=== PATIENT | female | born 1960 | race Caucasian/White ===

== ENCOUNTER → 2018-03-03 | Outpatient (CLI) | payer BC ==
[2018-03-03 15:47] VITALS: BP 140/80; PULSE 77; RESP 16; TEMP 99; BMI 35.6
--- NOTE | 2018-03-03 16:13 | P.HPBAR ---
Bariatric H&P - History & Physicial H&P Date: 03/03/18 History & Physicial: Visit/CC: WANTS BAND OUT Patient initial contact: Initial weight: 85.786 kg Initial weight in pounds: 189.13 Height: 5 ft 1 in Initial BMI: 35.7 Last weight: Current weight: 85.729 kg Current weight in pounds: 189.00 Current BMI: 35.6 [place] body weight (based on NIH guidelines): 47.627 kg Excess body weight loss: 0.1% The patient is a 58 year-old F who presents for Bariatric Assessment. Patient presents today for LAP-BAND follow-up. She's not been seen over 3 years. She has complaints of dysphagia. She states she cannot eat solid foods. She does however like chocolate. Past Medical History Past Medical History: Diabetes Mellitus, Osteoarthritis (OA) History of Any Multi-Drug Resistant Organisms: None Reported Past Surgical History: Back Surgery, Bariatric Surgery, Hysterectomy, Orthopedic Surgery Additional Past Surgical History / Comment(s): bilateral carpal tunnel surgery lap band surgery 2011 bilateral knee replacement cervical fusion lumbar fusion Past Anesthesia/Blood Transfusion Reactions: No Reported Reaction Smoking Status: Never smoker Surgical - Exam Vital Signs Temp Pulse Resp BP 99 F 77 16 140/80 03/03/18 15:43 03/03/18 15:43 03/03/18 15:43 03/03/18 15:43 - General well developed, no distress - Eyes PERRL - Abdomen Abdomen: soft, non tender Bariatric Assessment & Plan Plan: Severe dysphagia. Patient LAP-BAND was emptied. 1.6 mL remove her band. Patient follow-up in 2 weeks. The patient was requesting information about conversion sleeve gastrectomy. She'll will be reevaluated in 2 weeks. Bariatric Checklist Checklist: Plan: Checklist: EGD: 1. Hiatal hernia: 2. H. Pylori: HgbA1c: Vitamin D: Smoking: Never smoker Primary care physician referral: Psychiatry clearance: Cardiology clearance: Sleep study: Diet journal: VTE risk score: VTE risk level: Rehab needs at discharge:
== END | disposition home or self-care (01) ==
LOC: BARWHC3 15:29
PROVIDERS: ATTEND Surgery
DX: Z48.815 Encounter for surgical aftercare following surgery on the digestive system (principal); R13.10 Dysphagia, unspecified; Z98.84 Bariatric surgery status; Z90.710 Acquired absence of both cervix and uterus
CPT/HCPCS: 99211

== ENCOUNTER → 2019-03-10 | Outpatient (CLI) | payer BC ==
--- NOTE | 2019-03-10 11:35 | XR ---
Lumbar spine HISTORY: Low back pain 3 views of the lumbar spine correlated to prior lumbosacral spine 03/22/2010 Postop changes are noted at the lumbosacral junction as on previous, there are laminectomies, unilate ral posterior fusion with intervertebral spacing block at L5-S1. Multilevel spondylosis is present. L umbar vertebral bodies show preserved height and alignment. Bone mineralization is reduced. There is multilevel spondylosis. Loss of disc height present L4-5. Sclerosis present in the posterior elements compatible with facet arthropathy. Some progression of loss of disc height suspected L5-S1, minimal anterolisthesis grade 1 L5-S1 is stable. Patient is post lap band. Mild spinal curvature noted. IMPRESSION: Postop changes, degenerative disc disease, osteopenia. Some progression of loss of height at L5-S1, L4-5 is suspected.
== END | disposition home or self-care (01) ==
LOC: RADXRMAIN 09:27
PROVIDERS: ATTEND Family Medicine
DX: M51.37 Other intervertebral disc degeneration, lumbosacral region (principal); M85.88 Other specified disorders of bone density and structure, other site; Z98.890 Other specified postprocedural states
CPT/HCPCS: 72100

== ENCOUNTER → 2022-04-16 | Outpatient (CLI) | payer MEDICARE ==
[2022-04-16 13:45] VITALS: BP 171/94; PULSE 108; TEMP 98.6; BMI 34.2
--- NOTE | 2022-04-16 15:33 | P.HPBAR ---
Bariatric H&P - History & Physicial H&P Date: 04/16/22 History & Physicial: Visit/CC: lap band Patient initial contact: Initial weight: 85.786 kg Initial weight in pounds: 189.13 Height: 5 ft 1 in Initial BMI: 35.7 Last weight: Current weight: 82.1 kg Current weight in pounds: 181.00 Current BMI: 34.2 [place] body weight (based on NIH guidelines): 47.627 kg Excess body weight loss: 9.6% The patient is a 62 year-old F who presents for Bariatric Assessment. Patient presents today for bariatric follow-up. She is question of the LAP-BAND removed. She's had some trouble with intermittent dysphagia. Past Medical History Past Medical History: Diabetes Mellitus, Osteoarthritis (OA) History of Any Multi-Drug Resistant Organisms: None Reported Past Surgical History: Back Surgery, Bariatric Surgery, Hysterectomy, Orthopedic Surgery Additional Past Surgical History / Comment(s): bilateral carpal tunnel surgery lap band surgery 2011 bilateral knee replacement cervical fusion lumbar fusion Past Anesthesia/Blood Transfusion Reactions: No Reported Reaction Past Psychological History: No Psychological Hx Reported Smoking Status: Never smoker Past Alcohol Use History: None Reported Past Drug Use History: None Reported Surgical - Exam Vital Signs Temp Pulse BP 98.6 F 108 H 171/94 04/16/22 13:39 04/16/22 13:39 04/16/22 13:39 - General well developed, well nourished, no distress - Eyes PERRL - ENT normal pinna - Neck no masses - Respiratory normal expansion - Cardiovascular Rhythm: regular - Abdomen Abdomen: soft, non tender Bariatric Assessment & Plan Plan: Patient will have her LAP-BAND removed as an outpatient. Bariatric Checklist Checklist: Plan: Checklist: EGD: 1. Hiatal hernia: 2. H. Pylori: HgbA1c: Vitamin D: Smoking: Never smoker Primary care physician referral: Dr. Soto Psychiatry clearance: Cardiology clearance: Sleep study: Diet journal: VTE risk score: VTE risk level: Rehab needs at discharge:
== END ==
LOC: BARWHC3 13:07
PROVIDERS: ATTEND Surgery
DX: Z09 Encounter for follow-up examination after completed treatment for conditions other than malignant neoplasm (principal); Z98.84 Bariatric surgery status; M19.90 Unspecified osteoarthritis, unspecified site; E11.9 Type 2 diabetes mellitus without complications
CPT/HCPCS: 99211

== ENCOUNTER 2022-05-21 06:52 | Day surgery (SDC) | payer MEDICARE ==
[~2022-05-21 06:52] MED LIST: DEXAMETHASONE SOD PHOSPHATE 4 MG/ML 1 ML VIAL IV ONE; HYDROmorphone 0.5 MG/0.5 ML SYRINGE IVP PRN; LACTATED RINGERS 1,000 ML IV SCH; ONDANSETRON 4 MG/2 ML VIAL IVP ONE
[2022-05-21] MEDS ORDERED: HEPARIN SODIUM,PORCINE/PF 5,000 UNIT/0.5 ML SYRINGE SQ ONE (07:53)
[2022-05-21 07:58] LABS: Glucose,Whole Blood 142 mg/dL (70-110)
--- NOTE | 2022-05-21 08:41 | P.GSHP ---
History of Present Illness H&P Date: 05/21/22 Chief Complaint: Dysphagia This a 62-year-old female who's had complaints of dysphagia. Patient presents today for removal of LAP-BAND system. Past Medical History Past Medical History: Diabetes Mellitus, Hyperlipidemia, Hypertension, Musculoskeletal Disorder, Osteoarthritis (OA) Additional Past Medical History / Comment(s): chronic back pain History of Any Multi-Drug Resistant Organisms: None Reported Past Surgical History: Back Surgery, Bariatric Surgery, Hysterectomy, Joint Replacement, Orthopedic Surgery Additional Past Surgical History / Comment(s): bilateral carpal tunnel surgery, lap band surgery 2010, bilateral knee replacement, cervical fusion, lumbar fusion Past Anesthesia/Blood Transfusion Reactions: No Reported Reaction Past Psychological History: No Psychological Hx Reported Smoking Status: Never smoker Past Alcohol Use History: None Reported Past Drug Use History: None Reported - Past Family History Mother Family Medical History: No Reported History Medications and Allergies Home Medications Medication Instructions Recorded Confirmed Type Insulin Degludec [Tresiba 28 unit SQ PC-SUPPER 02/27/18 05/17/22 History Flextouch U-100] traMADol HCL 50 mg PO QID 04/16/22 05/17/22 History Lisinopril-Hctz 20-25 mg 1 tab PO DAILY 05/17/22 05/17/22 History [Zestoretic 20-25] Simvastatin [Zocor] 20 mg PO HS 05/17/22 05/17/22 History Allergies Allergy/AdvReac Type Severity Reaction Status Date / Time No Known Allergies Allergy Verified 05/17/22 17:24 Surgical - Exam Vital Signs Temp Pulse Resp BP Pulse Ox 97.8 F 110 H 20 191/91 97 05/21/22 07:41 05/21/22 07:41 05/21/22 07:41 05/21/22 07:41 05/21/22 07:41 - General well developed, well nourished, no distress - Eyes PERRL - ENT normal pinna - Neck no masses - Respiratory normal expansion - Cardiovascular Rhythm: regular - Abdomen Abdomen: soft, non tender Results - Labs Abnormal Lab Results - Last 24 Hours (Table) 05/21/22 Range/Units 07:47 POC Glucose (mg/dL) 142 H (70-110) mg/dL Assessment and Plan Assessment: History of dysphagia. We'll perform removal of LAP-BAND system.
[2022-05-21] MEDS ORDERED: GLYCOPYRROLATE 0.2 MG/ML 2 ML VIAL ONE (08:56)
[2022-05-21] MEDS ORDERED: MIDAZOLAM 2 MG/2 ML VIAL ONE (08:56)
[2022-05-21] MEDS ORDERED: PROPOFOL 10 MG/ML 20 ML VIAL IV ONE (08:56)
[2022-05-21] MEDS ORDERED: SUCCINYLCHOLINE CHLORIDE 200 MG/10 ML VIAL IV ONE (08:56)
[2022-05-21] MEDS ORDERED: LIDOCAINE 2% INJ 20 MG/ML (2 ML VIAL) ONE (08:56)
[2022-05-21] MEDS ORDERED: ePHEDrine 50 MG/ML 1 ML VIAL ONE (08:56)
[2022-05-21] MEDS ORDERED: NEOSTIGMINE 1 MG/ML 10 ML VIAL ONE (08:56)
[2022-05-21] MEDS ORDERED: fentaNYL (PF) 50 MCG/ML 2 ML AMP ONE (08:56)
[2022-05-21] MEDS ORDERED: ROCURONIUM 10 MG/ML (5 ML VIAL) IV ONE (08:56)
[2022-05-21] MEDS ORDERED: LABETALOL 5 MG/ML VIAL MDV ONE (08:56)
[2022-05-21] MEDS ORDERED: BUPIVACAIN-EPI 0.25%-1:200,000 30 ML VIAL SQ ONE (09:46)
--- NOTE | 2022-05-21 10:05 | P.OP ---
Date of Procedure: 05/21/22 Preoperative Diagnosis: Dysphagia Postoperative Diagnosis: Dysphagia Procedure(s) Performed: Removal of LAP-BAND system Anesthesia: ARLETH Surgeon: Herson Roland Estimated Blood Loss (ml): 5 Pathology: none sent Condition: stable Disposition: PACU Description of Procedure: The patient's placed on the operating table in the supine position. She received general endotracheal anesthesia. Her abdomen was then prepped and draped usual sterile fashion after she was placed in dorsal 5 position. The patient's placed in reverse Trendelenburg. The skin incision sites were located and 1% local Xylocaine was instilled. The skin was incised and the port site using blunt and sharp dissection with cautery the LAP-BAND port was dissected free the PEG tube was cut and sent to pathology. Using a 5 mm optical trocar under direct visualization the. Cavity is entered. Upon entering the peritoneal cavity the abdomen insufflated. After adequate insufflation a 5 mm trochars placed in the right epigastric position right lateral position left lateral position. The original 5 mm trocar was exchanged for a 15 mm trocar and an 8 mm trochars placed in the supraumbilical position. The LAP-BAND device was visualized. The adhesions Srini device were lysed using left cautery. The LAP-BAND device was then cut next to the buckle. And the buckle was undone and then the buckle pain was brought out through the 1500 trocar site. The LAP-BAND was then withdrawn from around stomach. And brought out through the 15 mm trocar site. There is no bleeding seen. The apices fluid. The trochars were withdrawn. Skin was closed interrupted 3-0 Monocryl suture. Dermabond dressings was applied. Patient top she will sent to recovery in stable condition.
[2022-05-21 10:06] VITALS: RESP 16; TEMP 97.2
[2022-05-21 10:12] LABS: Glucose,Whole Blood 250 mg/dL (70-110)
[2022-05-21] MEDS ORDERED: INSULIN ASPART (NovoLOG) 100 UNIT/ML VIAL SQ ONE (10:12)
[2022-05-21 11:24] VITALS: BP 124/81
[2022-05-21 11:37] VITALS: PULSE 90
[2022-05-21 11:39] LABS: Glucose,Whole Blood 226 mg/dL (70-110)
== END 2022-05-21 11:51 | disposition home or self-care (01) ==
LOC: OR 06:52
PROVIDERS: ATTEND Surgery
DX: Z45.89 Encounter for adjustment and management of other implanted devices (principal); R13.10 Dysphagia, unspecified; E66.01 Morbid (severe) obesity due to excess calories; E11.9 Type 2 diabetes mellitus without complications; E78.5 Hyperlipidemia, unspecified; I10 Essential (primary) hypertension; M19.90 Unspecified osteoarthritis, unspecified site; M79.9 Soft tissue disorder, unspecified; M54.9 Dorsalgia, unspecified; G89.29 Other chronic pain; Z79.84 Long term (current) use of oral hypoglycemic drugs; Z79.899 Other long term (current) drug therapy; Z79.890 Hormone replacement therapy
CPT/HCPCS: 43772; J2250; J0330; J1100; J2710; J0690; J2405; J3010; J2704; J1644; J2001

== ENCOUNTER → 2022-06-11 | Outpatient (CLI) | payer MEDICARE ==
[2022-06-11 13:29] VITALS: BP 178/85; PULSE 106; BMI 34.9
--- NOTE | 2022-06-11 15:04 | P.HPBAR ---
Bariatric H&P - History & Physicial H&P Date: 06/11/22 History & Physicial: Visit/CC: lap band removal f/u Patient initial contact: Initial weight: 85.786 kg Initial weight in pounds: 189.13 Height: 5 ft 1 in Initial BMI: 35.7 Last weight: Current weight: 83.915 kg Current weight in pounds: 185.00 Current BMI: 34.9 [place] body weight (based on NIH guidelines): 47.627 kg Excess body weight loss: 4.9% The patient is a 62 year-old F who presents for Bariatric Assessment. Patient presents today for follow-up. She had previous lap band removal. The patient has GERD. She feels she still has some dysphagia. Past Medical History Past Medical History: Diabetes Mellitus, Hyperlipidemia, Hypertension, Musculoskeletal Disorder, Osteoarthritis (OA) Additional Past Medical History / Comment(s): chronic back pain History of Any Multi-Drug Resistant Organisms: None Reported Past Surgical History: Back Surgery, Bariatric Surgery, Hysterectomy, Joint Replacement, Orthopedic Surgery Additional Past Surgical History / Comment(s): bilateral carpal tunnel surgery, lap band surgery 2010, bilateral knee replacement, cervical fusion, lumbar fusio n. lap band removal 05-21-22 Past Anesthesia/Blood Transfusion Reactions: No Reported Reaction Past Psychological History: No Psychological Hx Reported Smoking Status: Never smoker Past Alcohol Use History: None Reported Past Drug Use History: None Reported - Past Family History Mother Family Medical History: No Reported History Surgical - Exam Vital Signs Pulse BP 106 H 178/85 06/11/22 13:26 06/11/22 13:26 - General well developed, well nourished, no distress - Eyes PERRL - ENT normal pinna, normal nares - Neck no masses - Respiratory normal expansion - Cardiovascular Rhythm: regular - Abdomen Abdomen: soft, non tender Bariatric Assessment & Plan Plan: Patient's GERD will be observed. She'll follow-up in 8 weeks. Bariatric Checklist Checklist: Plan: Checklist: EGD: 1. Hiatal hernia: 2. H. Pylori: HgbA1c: Vitamin D: Smoking: Never smoker Primary care physician referral: Dr. Soto Psychiatry clearance: Cardiology clearance: Sleep study: Diet journal: VTE risk score: VTE risk level: Rehab needs at discharge:
== END ==
LOC: BARWHC3 12:48
PROVIDERS: ATTEND Surgery
DX: E66.01 Morbid (severe) obesity due to excess calories (principal); Z68.35 Body mass index [BMI] 35.0-35.9, adult
CPT/HCPCS: 99211

== ENCOUNTER → 2022-08-13 | Outpatient (CLI) | payer MEDICARE ==
[2022-08-13 13:02] VITALS: TEMP 98.7; BMI 36.2
[2022-08-13 13:04] VITALS: BP 132/85; PULSE 118
--- NOTE | 2022-08-13 13:35 | P.HPBAR ---
Bariatric H&P - History & Physicial H&P Date: 08/13/22 History & Physicial: Visit/CC: bariatric f/u Patient initial contact: Initial weight: 85.786 kg Initial weight in pounds: 189.13 Height: 5 ft 1 in Initial BMI: 35.7 Last weight: Current weight: 87.09 kg Current weight in pounds: 192.00 Current BMI: 36.2 [place] body weight (based on NIH guidelines): 47.627 kg Excess body weight loss: The patient is a 62 year-old F who presents for Bariatric Assessment. Patient presents today for bariatric follow-up. Her current BMI is 36. She her band removed previously. She is gained 7 pounds last visit. Patient's complaints of dysphagia. She has intermittent nausea vomiting and throws of food. Past Medical History Past Medical History: Diabetes Mellitus, Hyperlipidemia, Hypertension, Musculoskeletal Disorder, Osteoarthritis (OA) Additional Past Medical History / Comment(s): chronic back pain History of Any Multi-Drug Resistant Organisms: None Reported Past Surgical History: Back Surgery, Bariatric Surgery, Hysterectomy, Joint Replacement, Orthopedic Surgery Additional Past Surgical History / Comment(s): bilateral carpal tunnel surgery, lap band surgery 2010, bilateral knee replacement, cervical fusion, lumbar fusion. lap band removal 05-21-22 Past Anesthesia/Blood Transfusion Reactions: No Reported Reaction Smoking Status: Never smoker - Past Family History Mother Family Medical History: No Reported History Surgical - Exam Vital Signs Temp Pulse BP 98.7 F 156 H 188/96 08/13/22 12:59 08/13/22 12:59 08/13/22 12:59 - General well developed, well nourished, no distress - Eyes PERRL - ENT normal pinna - Neck no masses - Respiratory normal expansion - Cardiovascular Rhythm: regular - Abdomen Abdomen: soft, non tender Bariatric Assessment & Plan Plan: Dysphagia. Patient will undergo esophagram upper GI to evaluate for possible hiatal hernia or reflux. She'll follow-up in one month. Bariatric Checklist Checklist: Plan: Checklist: EGD: 1. Hiatal hernia: 2. H. Pylori: HgbA1c: Vitamin D: Smoking: Never smoker Primary care physician referral: Dr. Soto Psychiatry clearance: Cardiology clearance: Sleep study: Diet journal: VTE risk score: VTE risk level: Rehab needs at discharge:
== END ==
LOC: BARWHC3 12:29
PROVIDERS: ATTEND Surgery
DX: Z48.815 Encounter for surgical aftercare following surgery on the digestive system (principal); E66.01 Morbid (severe) obesity due to excess calories; Z68.36 Body mass index [BMI] 36.0-36.9, adult; Z98.84 Bariatric surgery status
CPT/HCPCS: 99211

== ENCOUNTER → 2022-11-30 | Outpatient (CLI) | payer MEDICARE ==
--- NOTE | 2022-11-30 14:00 | US ---
EXAMINATION TYPE: US carotid duplex BILAT DATE OF EXAM: 11/30/2022 COMPARISON: NONE CLINICAL HISTORY: R60.0 BILATERAL LEG EDEMA, R42 DIZZINESS, R94.31 ABNORMAL EK. Dizziness. HTN contr olled with meds. TECHNIQUE: Carotid duplex ultrasound examination. Indirect Doppler criteria was utilized. FINDINGS: EXAM MEASUREMENTS: RIGHT: Peak Systolic Velocity (PSV) cm/sec ----- Right CCA: 80.9 ----- Right ICA: 100.0 ----- Right ECA: 157.0 ICA/CCA ratio: 1.2 RIGHT: End Diastole cm/sec ----- Right CCA: 18.3 ----- Right ICA: 37.1 ----- Right ECA: 17.1 LEFT: Peak Systolic Velocity (PSV) cm/sec ----- Left CCA: 99.6 ----- Left ICA: 124.0 ----- Left ECA: 111.0 ICA/CCA ratio: 1.2 LEFT: End Diastole cm/sec ----- Left CCA: 25.8 ----- Left ICA: 44.8 ----- Left ECA: 10.7 VERTEBRALS (direction of flow): Right Vertebral: Antegrade Left Vertebral: Antegrade Rhythm: Normal GUIDE DELEGATE NOTES: Small amount of plaque left bulb. Slight wall thickening bilaterally. IMPRESSION: No evidence for hemodynamically significant stenosis. Criteria for Assigning % of Stenosis / Diameter reduction (Estimation based on the indirect measurements of the internal carotid artery velocities (ICA PSV). 1. Normal (no stenosis)=ICA PSV < 125 cm/s: ratio < 2.0: ICA EDV<40 cm/s. 2. Less than 50% stenosis=ICA PSV < 125 cm/s: ratio < 2.0: ICA EDV<40 cm/s. 3. 50 to 69% stenosis=ICA PSV of 125 to 230 cm/s: ration 2.0 ? 4.0: ICA EDV 40-100 cm/s. 4. Greater than 70% stenosis to near occlusion= ICA PSV > 230 cm/s: ratio > 4.0: ICA EDV > 100 cm/s. 5. Near occlusion= ICA PSV velocities may be low or undetectable: variable ratio and ICA EDV. 6. Total occlusion=unable to detect flow.
--- NOTE | 2022-12-01 12:35 | CA ---
Transthoracic Echo Report Name: Eva Greene Age: 62 Gender: F : 1960 Exam Date: 11/30/2022 12:43 Exam Location: [facility] Ht (in): 61 Wt (lb): 184 Ordering Physician: Cem Haskins MD Attending/Referring Phys: Cem Haskins MD Pharmaceutical Operator Cece Wood [facility] Procedure CPT: Indications: Z12.31 Screen mammo R94.31 Abn EKG Cardiac Hx: Technical Quality: Fair Contrast 1: Total Dose (mL): Contrast 2: Total Dose (mL): MEASUREMENTS (Male / Female) Normal Values 2D ECHO LV Diastolic Diameter PLAX 3.7 cm 4.2 - 5.9 / 3.9 - 5.3 cm LV Systolic Diameter PLAX 2.5 cm IVS Diastolic Thickness 1.3 cm 0.6 - 1.0 / 0.6 - 0.9 cm LVPW Diastolic Thickness 1.3 cm 0.6 - 1.0 / 0.6 - 0.9 cm LV Relative Wall Thickness 0.7 RV Internal Dim ED PLAX 2.7 cm LA Systolic Diameter LX 3.5 cm 3.0 - 4.0 / 2.7 - 3.8 cm LV Diastolic Volume MOD BP 43.2 cm??? 67 - 155 / 56 - 104 cm??? LV Systolic Volume MOD BP 20.0 cm??? 22 - 58 / 19 - 49 cm??? LV Ejection Fraction MOD BP 53.7 % >= 55 % LV Diastolic Volume MOD 4C 52.7 cm??? LV Systolic Volume MOD 4C 19.6 cm??? LV Ejection Fraction MOD 4C 62.9 % LV Diastolic Length 4C 6.7 cm LV Systolic Length 4C 6.0 cm LV Diastolic Volume MOD 2C 25.1 cm??? LV Systolic Volume MOD 2C 15.9 cm??? LV Ejection Fraction MOD 2C 36.4 % LV Diastolic Length 2C 4.5 cm LV Systolic Length 2C 4.5 cm LA Volume 29.9 cm??? 18 - 58 / 22 - 52 cm??? M-MODE Aortic Root Diameter MM 2.7 cm MV E Point Septal Separation 0.7 cm AV Cusp Separation MM 1.8 cm DOPPLER AV Peak Velocity 131.8 cm/s AV Peak Gradient 7.0 mmHg MV Area PHT 4.0 cm??? Mitral E Point Velocity 55.0 cm/s Mitral A Point Velocity 88.9 cm/s Mitral E to A Ratio 0.6 MV Deceleration Time 191.4 ms MV E' Velocity 8.0 cm/s Mitral E to MV E' Ratio 6.8 TR Peak Velocity 181.9 cm/s TR Peak Gradient 13.2 mmHg Right Ventricular Systolic Press 18.2 mmHg FINDINGS Left Ventricle Left ventricular ejection fraction is estimated at 55-60 %. Small left ventricular cavity. Mild concentric left ventricular hypertrophy. No obvious regional wall motion abnormalities. Right Ventricle Normal right ventricular size and function. Right ventricular systolic pressure within normal limits. Right Atrium Normal right atrial size. Left Atrium Normal left atrial size. Mitral Valve Structurally normal mitral valve. No mitral stenosis, regurgitation or prolapse. Aortic Valve Aortic valve not well visualized. No aortic valve stenosis or regurgitation. Tricuspid Valve Structurally normal tricuspid valve. Trace to mild tricuspid regurgitation. Pulmonic Valve Structurally normal pulmonic valve. No pulmonic regurgitation. Pericardium Normal pericardium. No pericardial effusion. Aorta Normal size aortic root and proximal ascending aorta. CONCLUSIONS Technically difficult study for interpretation Normal LV systolic function and normal RV systolic function Poorly visualized intracardiac valves No evidence of pericardial effusion Previewed by: Dr. Vince Velasquez MD (Electronically Signed) Final Date: 01 December 2022 12:34
--- NOTE | 2022-12-03 07:56 | MM ---
Reason for Exam: Screening (asymptomatic). Last mammogram was performed 14 year(s) and 3 month(s) ago. Patient History: Menarche at age 13. First Full-Term at age 19. Hysterectomy at age 36. 11/30/2005, Cancelled Left US Localization on the left side. Risk Values: Janie 5 year model risk: 1.1%. NCI Lifetime model risk: 5.0%. Prior Study Comparison: 10/21/2003 Bilateral Diagnostic Mammogram, [facility]. 11/02/2005 Bilateral Diagnostic Mammogram, [facility]. 08/20/2008 Bilateral Diagnostic Mammogram, [facility]. Tissue Density: There are scattered fibroglandular densities. Findings: Analyzed By CAD. There is no suspicious group of microcalcifications or new suspicious mass in either breast. Overall Assessment: Negative, BI-RAD 1 Management: Screening Mammogram of both breasts in 1 year. A clinical breast exam by your physician is recommended on an annual basis and results should be correlated with mammographic findings. Electronically signed and approved by: Aj Patino M.D. Radiologis
== END | disposition home or self-care (01) ==
LOC: RADECHMAIN 12:23
PROVIDERS: ATTEND Family Medicine
DX: Z12.31 Encounter for screening mammogram for malignant neoplasm of breast (principal); I10 Essential (primary) hypertension; R60.0 Localized edema; R94.31 Abnormal electrocardiogram [ECG] [EKG]
CPT/HCPCS: 77067; 93306; 93880

== ENCOUNTER → 2023-01-30 | Outpatient (CLI) | payer MEDICARE ==
[~2023-01-30] MED LIST changes: -DEXAMETHASONE SOD PHOSPHATE 4 MG/ML 1 ML VIAL IV ONE; -HYDROmorphone 0.5 MG/0.5 ML SYRINGE IVP PRN; -LACTATED RINGERS 1,000 ML IV SCH; -ONDANSETRON 4 MG/2 ML VIAL IVP ONE; +REGADENOSON 0.4 MG/5 ML SYRINGE IV ONE
--- NOTE | 2023-01-30 12:09 | CA ---
Lexiscan Nuclear Stress Test Report Name: Eva Greene Exam Date: 01/30/2023 09:25 Exam Location: [facility] Ht (in): 61 Wt (lb): 180 BSA: 1.81 Ordering Phys: Cem Haskins MD Referring Phys: GRACE, Technologist: ADONIS,, Age: 63 Gender: F : 1960 Procedure CPT: Indications: R94.31 abn ekg ICD-10 Codes: Patient History: Abnormal EKG, Hypertension and palpitations Medications: SIMVASTATIN,,,,,, LASIX,,,,,, LANTUS,,,,,, TRAMADOL,,,,,, LISINOPRIL,,,,, Meds past 24 hrs: Pretest Chest Pain: STRESS TEST Lexiscan Protocol Exercise Duration (min:sec): 02:[address] Depressions (mm): Angina Score: Grande Score: Resting HR (bpm): 80 Peak HR (bpm): 101 Resting BP (mmHg): 157 / 82 Peak BP (mmHg): 191 / 78 MPHR: 157 Target HR: 133 % MPHR: 64 METS: 1.0 Total Dose: Peak Dose: Atropine: Double Product: 71598 BP Response: Stress Termination: Infusion complete Stress Symptoms: No chest pain or symptoms Stress Summary: ECG ANALYSIS Resting ECG: Stress ECG: CONCLUSIONS Baseline EKG revealed a normal sinus rhythm without significant ST-T changes. With Lexiscan administration patient did not have any significant symptoms. The heart rate went up to 100 bpm and the blood pressure changed from 157/82-136/67. By EKG criteria this is a unremarkable Lexiscan stress test. The nuclear scan results which are more pertinent will be reported by the radiologist Dr. Felipe Mendez MD (Electronically Signed) Final Date: 30 Jan 2023 12:08
--- NOTE | 2023-01-31 10:51 | NM ---
EXAMINATION TYPE: NM stress lexiscan cardiolite DATE OF EXAM: 01/30/2023 COMPARISON: NONE CLINICAL INDICATION: Female, 63 years old with history of R94.31 Abn EKG; TECHNIQUE: After the intravenous administration of 9.5 mCi Tc 99m Sestamibi - Cardiolite resting SPE CT images acquired 45 minutes post injection. The patient received 0.4mg Lexiscan, 26.1 mCi Tc 99m Sestamibi - Stress images obtained [address] injection FINDINGS: Review of stress and rest SPECT images demonstrates decreased perfusion along the inferior, inferosep citlali mid and basal wall and also along the lateral apical wall. However, these changes are more pronou nced on rest images. Findings suggest attenuation artifact. No discrete reversibility is seen. Gated analysis shows normal wall motion with an estimated left ventricular ejection fraction of 67 %. TID is calculated at 1.11, within normal limits. IMPRESSION: Small fixed perfusion defects, one along the lateral apical wall and one along the inferoseptal mid t o basal wall favored to represent attenuation artifacts rather than areas of old infarct. Clinically correlate. No suspicious reversibility is seen.
== END | disposition home or self-care (01) ==
LOC: RADNMMAIN 07:45
PROVIDERS: ATTEND Family Medicine
DX: R94.31 Abnormal electrocardiogram [ECG] [EKG] (principal)
CPT/HCPCS: 93017; 78452; A9500; J2785

== ENCOUNTER → 2024-04-29 | Outpatient (CLI) | payer MEDICARE ==
--- NOTE | 2024-05-27 15:11 | US ---
Eva Greene ID: [id number] : 1960 EXAMINATION TYPE: US venous doppler duplex UE LT DATE OF EXAM: 04/29/2024 COMPARISON: NONE CLINICAL INDICATION: 64-year-old female left upper extremity but despite with swelling, assess for DV T SIDE PERFORMED: Left FINDINGS: Grayscale, color doppler, spectral doppler imaging performed of the deep veins of the upper extremiti es. There is normal flow, compressibility and vascular waveforms. Left Arm: Negative for DVT IMPRESSION: Left upper extremity Doppler ultrasound negative for DVT or SVT.
== END | disposition home or self-care (01) ==
LOC: RADUSWWP 17:43
PROVIDERS: ATTEND Family Medicine
DX: I82.402 Acute embolism and thrombosis of unspecified deep veins of left lower extremity (principal)